=== PATIENT | female | born 1955 | race Caucasian/White ===

== ENCOUNTER → 2017-05-10 | Day surgery (SDC) | payer OTHER ==
[~2017-05-10] MED LIST: PROPOFOL 200 MG/20 ML AMP IV ONE
--- NOTE | 2017-05-10 11:35 | GIPROC ---
[facility] [address] [facility], [address] EGD PROCEDURE REPORT EXAM DATE: 05/10/2017 PATIENT NAME: Alba Mejia MR #: [id number] BIRTHDATE: 1955 ATTENDING: Alannah Powell MD ORDER #: [id number] FILLER BLENDER: Hazel Ochoa TANK HOUSE SUPERVISOR STATUS: outpatient INDICATIONS: The patient is a 61 yr old female here for an EGD due to history of esophageal reflux PROCEDURE PERFORMED: EGD w/ biopsy MEDICATIONS: None and Per Anesthesia. TOPICAL ANESTHETIC: CONSENT: The patient understands the risks and benefits of the procedure and understands that these risks include, but are not limited to: sedation, allergic reaction, infection, perforation and/or bleeding. Alternative means of evaluation and treatment include, among others: physical exam, x-rays, and/or surgical intervention. The patient elects to proceed with this endoscopic procedure. medical equipment was checked for proper function. Hand hygiene and appropriate measures for infection prevention was taken. After the risks, benefits and alternatives of the procedure were thoroughly explained, Informed consent was verified, confirmed and timeout was successfully executed by the treatment team. The patient was anesthetized with topical anesthesia and the EC-3890Li ([id number]) and EC-3890Li ([id number]) endoscope was introduced through the mouth and advanced to the second portion of the duodenum. Retroflexed views revealed no abnormalities The gastroscope was then slowly withdrawn and removed. ESOPHAGUS: The mucosa of the esophagus appeared normal. STOMACH: There was erythematous moderate gastritis in the gastric antrum. A biopsy was performed using cold forceps. Sample sent for histology. DUODENUM: The duodenal mucosa appeared normal in the 2nd part of the duodenum. ADVERSE EVENTS: There were no complications. IMPRESSIONS: 1. The esophagus appeared normal 2. There was erythematous gastritis in the gastric antrum; biopsy was performed 3. Normal duodenal mucosa in the 2nd part of the duodenum 4. Retroflexed views revealed no abnormalities RECOMMENDATIONS: 1. Await biopsy results. Biopsy results will not be ready for 7-10 days. If you don't hear from us in two weeks, call our office for biopsy results. 2. Anti-reflux regimen 3. Avoid NSAIDS PATIENT CONDITION: stable DISPOSITION: Home REPEAT EXAM: Return 3 years EGD pending biopsy results Alannah Powell MD eSigned: Alannah Powell MD 05/10/2017 11:34 AM cc: Francy Mustafa [facility] PATIENT NAME: Alba Mejia MR#: [id number]
--- NOTE | 2017-05-10 11:52 | GIPROC ---
[facility] [address] [facility], [address] COLONOSCOPY PROCEDURE REPORT EXAM DATE: 05/10/2017 PATIENT NAME: Alba Mejia MR #: [id number] BIRTHDATE: 1955 ENDOSCOPIST: Alannah Powell MD ORDER #: [id number] INJECTION MACHINE OPERATOR: Hazel Ochoa PROVIDER CONTRACTING CONSULTANT STATUS: outpatient INDICATIONS: The patient is a 61 yr old female here for a colonoscopy due to abdominal pain and an abnormal CT MEDICATIONS: None and Per Anesthesia. PREP QUALITY: The Ada Bowel Prep Score was Right colon 2, Mid colon 3, and Left colon 3. Total = 8. ESTIMATED BLOOD LOSS: None CONSENT: The patient understands the risks and benefits of the procedure and understands that these risks include, but are not limited to: sedation, allergic reaction, infection, perforation and/or bleeding. Alternative means of evaluation and treatment include, among others: physical exam, x-rays, and/or surgical intervention. The patient elects to proceed with this endoscopic procedure. medical equipment was checked for proper function. Hand hygiene and appropriate measures for infection prevention was taken. After the risks, benefits and alternatives of the procedure were thoroughly explained, Informed consent was verified, confirmed and timeout was successfully executed by the treatment team. A digital exam revealed external hemorrhoids The EC-3890Li ([id number]) endoscope was introduced through the anus and advanced to the cecum, which was identified by both the appendix and ileocecal valve. The instrument was then slowly withdrawn as the colon was fully examined. COLON FINDINGS: A polypoid shaped sessile polyp ranging between 5-9mm in size was found in the sigmoid colon. A polypectomy was performed using snare cautery. The resection was complete and the polyp tissue was completely retrieved. A 2 x 2cm circumferential patch of abnormal mucosa was found in the sigmoid colon. The mucosa was erythematous and ulcerated. This was likely consistent with infectious colitis disease. Multiple biopsies were performed using cold forceps. Retroflexed views revealed internal hemorrhoids and Retroflexed views revealed medium internal hemorrhoids The scope was then completely withdrawn from the patient and the procedure terminated. PROCEDURE WITHDRAWAL TIME:7minutes ADVERSE EVENTS: There were no complications. IMPRESSIONS: 1. A sessile polyp ranging between 5-9mm in size was found in the sigmoid colon; polypectomy was performed using snare cautery 2. 2 x 2cm circumferential abnormal mucosa was found in the sigmoid colon; The mucosa was erythematous and ulcerated; multiple biopsies were performed using cold forceps 3. Retroflexed views revealed internal hemorrhoids 4. Retroflexed views revealed medium internal hemorrhoids 5. Revealed external hemorrhoids RECOMMENDATIONS: 1. Await biopsy results. Biopsy results will not be ready for 7-10 days. If you don't hear from us in two weeks, call our office for results. 2. Yearly hemoccult 3. Follow-up: GI Clinic 2 week(s) RECALL: Return 3 months Colonoscopy, pending biopsy results Alannah Powell MD eSigned: Alannah Powell MD 05/10/2017 11:51 AM cc: Francy Mustafa, [facility] Judith and Annabel Reagan M.D. PATIENT NAME: Alba Mejia MR#: [id number]
== END | disposition home or self-care (01) ==
LOC: ESDC 09:11
PROVIDERS: ATTEND Internal Medicine Gastroenterology
DX: R10.9 Unspecified abdominal pain (principal); R93.3 Abnormal findings on diagnostic imaging of other parts of digestive tract; D12.5 Benign neoplasm of sigmoid colon; K52.9 Noninfective gastroenteritis and colitis, unspecified; K64.8 Other hemorrhoids; K64.4 Residual hemorrhoidal skin tags; K21.9 Gastro-esophageal reflux disease without esophagitis; K29.70 Gastritis, unspecified, without bleeding
CPT/HCPCS: 00740; 00810; 43239; 45380; 45385; 88305; 88312; J3010